=== PATIENT | male | born 1945 | race Caucasian/White ===

== ENCOUNTER 2023-12-03 09:02 | Day surgery (SDC) | payer OTHER ==
[~2023-12-03] VITALS: Ht 177.8 cm; Wt 76.8 kg
[2023-12-03] VITALS (9 sets, daily range): BP systolic 103–151; BP diastolic 71–102; PULSE 59–88; TEMP 98.5
[2023-12-03] MEDS ORDERED: 1/2 NS 1,000 ML IV SCH (09:45)
[2023-12-03 09:47] LABS: HEMATOCRIT 51.7 % (42.0-52.0); HEMOGLOBIN 16.7 g/dl (13.5-18.0); MEAN CELL VOLUME 97 fl (80.0-100.0); MEAN CORPUSCULAR HEMOGLOBIN 31 pg (27-31); MEAN CORPUSCULAR HGB CONC 32 g/dl (33.0-37.0); MEAN PLATELET VOLUME 9.2 fl (7.4-10.4); PLATELET COUNT 199 K/mm3 (130-400); RED BLOOD COUNT 5.36 M/mm3 (4.20-5.60); REDCELL DISTRIBUTION WIDTH-CV 13.6 % (11.5-14.5)
[2023-12-03 09:57] LABS: PROTHROMBIN TIME 10.7 SECONDS (9.7-12.8)
[2023-12-03] MEDS ORDERED: LIPITOR20 MG PO (09:59)
[2023-12-03] MEDS ORDERED: PROAIR HFA0.09 MG/AC IH (09:59)
[2023-12-03 10:00] LABS: PARTIAL THROMBOPLASTIN TIME 37.8 SECONDS (26.0-37.0)
[2023-12-03] MEDS ORDERED: B-121000 MCG PO (10:00)
[2023-12-03] MEDS ORDERED: PROSCAR 5MG5 MG PO (10:01)
[2023-12-03] MEDS ORDERED: CYMBALTA 60MG60 MG PO (10:01)
[2023-12-03] MEDS ORDERED: ATARAX 25MG25 MG/TAB PO (10:02)
[2023-12-03] MEDS ORDERED: RT ADVAIR 228 DISKUS IH (10:02)
[2023-12-03] MEDS ORDERED: PRINIVIL5 MG PO (10:03)
[2023-12-03] MEDS ORDERED: MIRAPEX 1MG PO (10:04)
[2023-12-03] MEDS ORDERED: FLOMAX 0.40.4 MG/CAP PO (10:04)
[2023-12-03] MEDS ORDERED: [UNRECOGNIZED DRUG - OTHER] TOP (10:05)
[2023-12-03] MEDS ORDERED: SPIRIVA RE2.5 MCG/Ac IH (10:05)
[2023-12-03] MEDS ORDERED: EPA FISH OIL1 SGL PO (10:06)
[2023-12-03 10:15] LABS: CALCIUM 9.1 mg/dL (8.4-10.2); CREATININE, serum 1.29 mg/dL (0.72-1.25); POTASSIUM 4.3 mEq/L (3.5-4.5)
--- NOTE | 2023-12-03 11:15 | NUR ---
Refer to [facility] for procedural sedation/notes
[2023-12-03] MEDS ORDERED: niCARdipine (Cath Lab) 100 MCG/ML 10 ML VIAL IA SCH (11:42)
[2023-12-03] MEDS ORDERED: Heparin 1,000 UNITS/ML 10 ML Multi-Dose VIAL IV SCH (11:42)
[2023-12-03] MEDS ORDERED: fentaNYL 50 MCG/ML 2 ML VIAL IV SCH (11:46)
[2023-12-03] MEDS ORDERED: Iohexol 350 - 100 ML VIAL INCOR ONE (11:48)
--- NOTE | 2023-12-03 12:20 | NUR ---
Pt back to [facility] - bedside handoff performed with NINO Arvizu - vitals initiated and stable and near baseline, including SpO2. Right groin/radial access sites assessed together and stable. Call light in reach
--- NOTE | 2023-12-03 15:18 | NUR ---
PT TOLERATED RECOVERY PERIOD WELL. VS REMAINED WITHIN NORMAL LIMITS. RIGHT FEMORAL AND RADIAL SITES REMAINED CLEAN DRY AND INTACT UPON DISCHARGE AND PT REMAINED FREE FROM SIGNS OF BLEEDING AND HEMATOMA. PT TOLERATED PO FLUIDS AND WAS ASSISTED TO MAIN LOBBY VIA WHEELCHAIR. IV DISCONTINUED AND PT VERBALIZED UNDERSTANDING OF DISCHARGE INSTRUCTIONS. PT FREE FROM CONCERNS AND COMPLAINTS UPON DISCHARGE.
== END 2023-12-03 15:00 | disposition home or self-care (01) ==
LOC: COL.CAR 09:02
PROVIDERS: Internal Medicine Cardiovascular Disease
DX: I27.20 Pulmonary hypertension, unspecified (principal); R93.1 Abnormal findings on diagnostic imaging of heart and coronary circulation
CPT/HCPCS: C1769; C1894; J1644; J2404; J3010; Q9967